=== PATIENT | male | born 1950 | race Asian ===

== ENCOUNTER 2024-03-10 08:59 | Inpatient (IN) | payer OTHER ==
[2024-03-10] MEDS ORDERED: NOREPINEPHRINE BITARTRATE 4 MG/4 ML ML IV ONE ×2 (09:19→09:22)
[2024-03-10] MEDS ORDERED: RAPID SEQUENCE INTUBATION KIT NR ONE (09:22)
[2024-03-10] MEDS ORDERED: NOREPINEPHRINE 0.9 % NACL 8 MG/250 ML BAG IVPB ONE (09:25)
[2024-03-10] MEDS ORDERED: FENTANYL CITRATE/PF 50 MCG/ML VIAL ONE ×2 (09:36→10:03)
[2024-03-10 10:37] LABS: HEMATOCRIT 31.7 % (35.4-49); HEMOGLOBIN 10.2 GM/dL (11.7-16.9); MCHC 32.2 g/dl (32.0-35.9); MEAN CELL VOLUME 90.1 fl (80-96); MEAN PLT VOLUME 9.3 fl (7.5-11.1); PLATELET COUNT 39 10^3/uL (134-434); RBC 3.52 M/mm3 (4.00-5.60); RDW 16.3 % (11.9-15.9); WHITE BLOOD COUNT 12.2 K/mm3 (4.0-10.0)
[2024-03-10 10:41] LABS: INR 1.07 (0.83-1.09); PROTHROMBIN TIME (PATIENT) 12.3 SEC (9.7-13.0)
[2024-03-10 10:45] LABS: ACTIVATED PTT 41.5 SECONDS (25.2-36.5)
[2024-03-10 10:46] LABS: VENOUS BASE EXCESS -12.1 mmol/L (-2-2); VENOUS O2 SATURATION 85.2 % (70-80)
[2024-03-10 10:50] LABS: VENOUS PH 7.158 (7.310-7.410)
[2024-03-10 11:06] LABS: CHLORIDE 112 mmol/L (98-107); POTASSIUM 5.5 mmol/L (3.5-5.1); SODIUM 148 mmol/L (136-145)
[2024-03-10] MEDS: PHENYLEPHRINE HCL 10 MG/1 ML SINGLE DOSE VIAL IVPB ONE ×2 (11:07)
[2024-03-10] MEDS: SUCCINYLCHOLINE CHLORIDE 200 MG/10 ML VIAL IVPUSH ONE (11:07)
[2024-03-10] MEDS: ROCURONIUM BROMIDE 50 MG/5 ML VIAL IV ONE (11:07)
[2024-03-10] MEDS: ETOMIDATE 40 MG/20 ML VIAL IVPUSH ONE (11:07)
[2024-03-10 11:08] LABS: ALBUMIN 1.8 g/dl (3.4-5.0); ANION GAP 14 mmol/L (4-13); CO2 21 mmol/L (21-32); GLUCOSE,RANDOM 52 mg/dL (74-106); MAGNESIUM 2.3 mg/dL (1.8-2.4)
[2024-03-10] MEDS: NOREPINEPHRINE 0.9 % NACL 8 MG/250 ML BAG IVPB SCH (11:08)
[2024-03-10 11:10] LABS: EPI CELLS 1 /uL (0-25.1); HYALINE CASTS 1 /uL (0-3.1); PH,URINE 7.5 (5.0-8.0); URINE APPEARANCE CLOUDY; URINE BILIRUBIN NEGATIVE (NEGATIVE); URINE COLOR DK YELLOW; URINE GLUCOSE (UA) NEGATIVE (NEGATIVE); URINE KETONE NEGATIVE (NEGATIVE); URINE LEUK ESTERASE 2+ (NEGATIVE); URINE NITRITE POSITIVE (NEGATIVE); URINE PROTEIN 4+ (NEGATIVE); URINE RBC 2079 /uL (0-23.9); URINE UROBILINOGEN 0.2 mg/dL (0.2-1.0); URINE WBC 336 /uL (0-25.8)
[2024-03-10 11:11] LABS: CREATININE 6.8 mg/dL (0.55-1.3); SGOT/AST 312 U/L (15-37); SGPT/ALT 136 U/L (13-61)
[2024-03-10 11:13] LABS: BILIRUBIN,TOTAL 1.2 mg/dL (0.2-1); TOT PROT 4.8 g/dl (6.4-8.2)
[2024-03-10 11:14] LABS: ALK PHOS 234 U/L (45-117)
[2024-03-10 11:16] LABS: ANISOCYTOSIS 0; MACROCYTOSIS 0
[2024-03-10 11:30] LABS: BLOOD UREA NITROGEN 122.4 mg/dL (7-18); CALCIUM 6.2 mg/dL (8.5-10.1)
[2024-03-10 12:01] LABS: BILIRUBIN,DIRECT 0.9 mg/dL (0.0-0.2)
[2024-03-10] MEDS: DEXTROSE 50%-WATER 25 GM/50 ML DISP.SYRIN IVPUSH ONE (12:10)
[2024-03-10] MEDS ORDERED: PIPERACILLIN/TAZOB 3.375 GM 3.375 GM/50 ML BAG IVPB ONE (12:11)
[2024-03-10 12:15] VITALS: BMI 55.2
[2024-03-10] MEDS: PIPERACILLIN/TAZOB 3.375 GM 3.375 GM in DEXTROSE 5%-WATER - 50 ML IVPB ONE (12:17)
[2024-03-10] MEDS: LACTATED RINGERS SOLUTION 1,000 ML/1,000 ML INFUS.BAG IV STA (12:17)
[2024-03-10] MEDS ORDERED: DEXTROSE 50%-WATER 25 GM/50 ML DISP.SYRIN ONE (12:19)
[2024-03-10] MEDS: DEXAMETHASONE SOD PHOSPHATE 10 MG/1 ML VIAL IVPUSH ONE (12:25)
[2024-03-10] MEDS ORDERED: DEXAMETHASONE SOD PHOSPHATE 10 MG/1 ML VIAL ONE (12:26)
[2024-03-10] MEDS: VANCOMYCIN/WATER 1250 MG 1,250 MG/250 ML BAG IVPB ONE (12:45)
[2024-03-10] MEDS ORDERED: VANCOMYCIN/WATER 1250 MG 1,250 MG/250 ML BAG IVPB ONE (12:46)
[2024-03-10] MEDS ORDERED: DEXTROSE 50%-WATER 25 GM/50 ML DISP.SYRIN IVPUSH PRN (13:17)
[2024-03-10] MEDS ORDERED: HEPARIN NA (PORCINE) 5,000 UNITS/ML 1ML VIAL ONE (13:20)
[2024-03-10] MEDS: HEPARIN NA (PORCINE) 5,000 UNITS/ML 1ML VIAL SQ SCH (13:21)
[2024-03-10] MEDS: SODIUM ZIRCONIUM CYCLOSILICATE (LOKELMA) 5 GM PACKET PO SCH (14:00)
[2024-03-10] MEDS: SODIUM CHLORIDE 0.45% 1,000 ML IV SCH (14:59)
[2024-03-10] MEDS ORDERED: VASopressin 20 UNITS/ML VIAL IV ONE (15:14)
[2024-03-10] MEDS: HYDROCORTISONE SOD SUCCINATE 100 MG/2 ML VIAL IVPB SCH (15:19)
[2024-03-10] MEDS: VASopressin 40 UNITS/100 ML BAG IV SCH (15:21)
[2024-03-10] MEDS: SODIUM CHLORIDE 1,000 ML IV STA (15:45)
[2024-03-10] MEDS: PIPERACILLIN/TAZOB 2.25 GM 2.25 GM in DEXTROSE 5%-WATER - 50 ML IVPB SCH (17:40)
[2024-03-10 18:06] LABS: LACTIC ACID 6.7 mmol/L (0.4-2.0)
[2024-03-10 18:42] LABS: CHLORIDE 112 mmol/L (98-107); SODIUM 144 mmol/L (136-145)
[2024-03-10 18:44] LABS: CO2 16 mmol/L (21-32); GLUCOSE,RANDOM 92 mg/dL (74-106)
[2024-03-10 18:48] LABS: CREATININE 6.8 mg/dL (0.55-1.3)
[2024-03-10 19:04] LABS: ANION GAP 15 mmol/L (4-13); BLOOD UREA NITROGEN 122.8 mg/dL (7-18); CALCIUM 6.6 mg/dL (8.5-10.1); POTASSIUM 6.8 mmol/L (3.5-5.1)
[2024-03-10] MEDS: FLUDROCORTISONE ACETATE 0.1 MG TABLET (FP) PO SCH (19:05)
[2024-03-10] MEDS ORDERED: CALCIUM GLUC IN NACL, ISO-OSM 1 GM/50 ML BAG IVPB ONE (19:08)
[2024-03-10] MEDS ORDERED: INSULIN REGULAR HUMAN 100 UNITS/ML *VIAL IVPUSH ONE (19:09)
[2024-03-10] MEDS ORDERED: DEXTROSE 50%-WATER - 25 GM/50 ML VIAL IVPUSH ONE (19:09)
[2024-03-10] MEDS ORDERED: ALBUTEROL SO4 2.5/IPRATROPIUM 0.5 INH SOL 3 ML VIAL.NEB. NEB ONE (19:10)
[2024-03-10 19:43] VITALS: TEMP 96
[2024-03-10] MEDS ORDERED: REMDESIVIR 200 MG in SODIUM CHLORIDE 250 ML IVPB ONE (20:00)
[2024-03-10 20:38] VITALS: RESP 31
[2024-03-10 20:59] VITALS: BP 64/38; PULSE 100
[2024-03-10] MEDS ORDERED: PIPERACILLIN/TAZOB 2.25 GM 2.25 GM in DEXTROSE 5%-WATER - 50 ML IVPB SCH (21:00)
[2024-03-10] MEDS ORDERED: MUPIROCIN 2% TOPICAL OINTMENT FOR DECOLONIZATION NS SCH (22:00)
[2024-03-10] MEDS ORDERED: CHLORHEXIDINE GLUCONATE 4% CLEANSER FOR DECOLONIZATION TP SCH (22:00)
== END 2024-03-10 23:38 | disposition expired | DRG 871 ==
LOC: JER 08:59 → JERBED 12:33 → JICU 14:54
PROVIDERS: ADMIT Internal Medicine; ATTEND Internal Medicine
PROC: 5A1935Z Respiratory Ventilation, Less than 24 Consecutive Hours (ICD-10-PCS; principal; 2024-03-10)
PROC: 0BH17EZ Insertion of Endotracheal Airway into Trachea, Via Natural or Artificial Opening (ICD-10-PCS; 2024-03-10)
PROC: 05HM33Z Insertion of Infusion Device into Right Internal Jugular Vein, Percutaneous Approach (ICD-10-PCS; 2024-03-10)
DX: A41.9 Sepsis, unspecified organism (principal); J96.01 Acute respiratory failure with hypoxia; R65.21 Severe sepsis with septic shock; U07.1 COVID-19; N13.6 Pyonephrosis; I69.351 Hemiplegia and hemiparesis following cerebral infarction affecting right dominant side; N17.9 Acute kidney failure, unspecified; N39.0 Urinary tract infection, site not specified; E87.20 Acidosis, unspecified; E78.5 Hyperlipidemia, unspecified; K21.9 Gastro-esophageal reflux disease without esophagitis; D69.6 Thrombocytopenia, unspecified; R74.01 Elevation of levels of liver transaminase levels
CPT/HCPCS: 0241U-QW; 36415; 70450-TC; 71045-TC-FY; 71250-TC; 74176-TC; 76700-TC; 80048; 80053; 81003; 82248; 82803; 82962; 83605; 83735; 84484; 85025; 85610; 85730; 86140; 86850; 86900; 86901; 87040; 87186; 93005; 93010; 99291; J1100; J1644; J3490